=== PATIENT | female | born 1965 | race Caucasian/White ===

== ENCOUNTER 2025-01-30 07:08 | Day surgery (SDC) | payer OTHER ==
[2025-01-27 14:33] VITALS: BMI 20.4
[2025-01-30 07:23] VITALS: RESP 18
[2025-01-30 09:25] VITALS: TEMP 98
[2025-01-30 09:30] VITALS: BP 107/77; PULSE 69
== END 2025-01-30 09:25 | disposition home or self-care (01) ==
LOC: FASU-ENDO 07:08
PROVIDERS: ATTEND Internal Medicine Gastroenterology
PROC: 0DJD8ZZ Inspection of Lower Intestinal Tract, Via Natural or Artificial Opening Endoscopic (ICD-10-PCS; principal; 2025-01-30 08:35)
DX: Z12.11 Encounter for screening for malignant neoplasm of colon (principal); K64.1 Second degree hemorrhoids; K64.8 Other hemorrhoids